=== PATIENT | female | born 2000 | race Two or more races ===

== ENCOUNTER 2023-11-28 13:59 | Observation (INO) | payer SELFPAY ==
[~2023-11-28] VITALS: Ht 157.5 cm; Wt 94.3 kg
[2023-11-28] MEDS: KETOROLAC TROMETHAMINE 30 MG/ML VIAL IV STA (15:25)
[2023-11-28] MEDS: ALBUTEROL/IPRATROPIUM 3 ML NEB NEB SCH (15:26)
[2023-11-28] MEDS: TETANUS/DIPHTHERIA TOX ADULT 0.5 ML SYR IM ONE (15:27)
[2023-11-28] MEDS ORDERED: ONDANSETRON HCL INJ 2MG/ML 2ML 2 MG/ML VIAL IV PRN (16:00)
[2023-11-28] MEDS ORDERED: SODIUM CHLORIDE FLUSH 10 ML SYR INJ PRN (16:00)
[2023-11-28] MEDS ORDERED: ACETAMINOPHEN 325 MG TAB PO PRN (16:00)
[2023-11-28] MEDS ORDERED: ALBUTEROL 90 MCG/ACT INHALER INH PRN (16:00)
[2023-11-28 16:08] VITALS: PULSE 77; RESP 18; TEMP 97.7
[2023-11-28 16:47] VITALS: BP 135/82; PULSE 71; RESP 18; TEMP 98.3; O2SAT 100
[2023-11-28 17:44] VITALS: BP 133/82; PULSE 71; RESP 18; TEMP 98.3; O2SAT 100
[2023-11-28 17:49] VITALS: BP 133/82; PULSE 71; RESP 18; TEMP 98.3; O2SAT 100
[2023-11-28 20:00] VITALS: BP 124/75; PULSE 71; RESP 18; TEMP 98; O2SAT 100
[2023-11-28] MEDS: DIPHENHYDRAMINE HCL 25 MG CAP PO PRN (20:52)
[2023-11-28] MEDS: KETOROLAC TROMETHAMINE 30 MG/ML VIAL IV PRN (20:52)
[2023-11-28 23:15] VITALS: PULSE 70; RESP 18; O2SAT 100
[2023-11-29] VITALS (10 sets, daily range): BP systolic 111–125; BP diastolic 65–76; PULSE 69–93; RESP 16–20; TEMP 98–98.7; O2SAT 98–100
[2023-11-29 05:14] LABS: BASOPHILS # (AUTO) 0.1 (0.0-0.1); BASOPHILS % 0.7 % (0.0-1.0); EOSINOPHILS # (AUTO) 1.1 (0.0-0.4); EOSINOPHILS % 11.1 % (0.0-6.0); HEMATOCRIT 37.3 % (34.2-44.1); HEMOGLOBIN 11.8 g/dL (12.0-16.0); LYMPHOCYTES # (AUTO) 3.3 (1.0-3.2); LYMPHOCYTES % 33.7 % (18.0-39.1); MEAN CORPUSCULAR HEMOGLOBIN 27.3 pg (28-32); MEAN CORPUSCULAR HGB CONC 31.6 g/dL (31-35); MEAN CORPUSCULAR VOLUME 86.3 fL (81-99); MONOCYTES # (AUTO) 0.9 (0.2-0.8); MONOCYTES % 8.6 % (4.4-11.3); NEUTROPHILS # (AUTO) 4.5 (2.1-6.9); NEUTROPHILS % 45.4 % (38.7-80.0); PLATELET COUNT 362 x10e3/uL (140-360); RED BLOOD COUNT 4.32 x10e6/uL (3.6-5.1); RED CELL DISTRIBUTION WIDTH 12.9 % (11.7-14.4); WHITE BLOOD COUNT 9.84 x10e3/uL (4.8-10.8)
[2023-11-29 05:34] LABS: ANION GAP 13.5 mmol/L (8-16); CALCIUM 8.5 mg/dL (8.4-10.2); CREATININE, SERUM 0.81 mg/dL (0.57-1.11); POTASSIUM 3.5 mmol/L (3.5-5.1)
[2023-11-29] MEDS ORDERED: ALBUTEROL/IPRATROPIUM 3 ML NEB NEB PRN ×2 (07:45→08:45)
[2023-11-29] MEDS ORDERED: NAPHAZOLINE OP SCH (09:00)
[2023-11-29] MEDS ORDERED: PHENIRAMINE OP SCH (09:00)
[2023-11-29] MEDS ORDERED: TETRAHYDROZOLINE HCL(OPTH) 30 ML BOTTLE OP PRN (09:30)
[2023-11-29] MEDS: LORATADINE 10 MG TAB PO SCH (09:33)
[2023-11-29] MEDS: CELECOXIB 100 MG CAP PO SCH (10:32)
[2023-11-29] MEDS: ACETAMINOPHEN 325 MG TAB PO PRN (10:33)
[2023-11-30 04:00] VITALS: BP 101/55; PULSE 68; RESP 18; TEMP 97.8; O2SAT 97
[2023-11-30 08:10] VITALS: PULSE 89; RESP 16; O2SAT 97
[2023-11-30 08:14] VITALS: BP 111/53; PULSE 62; RESP 17; TEMP 97.8; O2SAT 98
[2023-11-30 08:51] VITALS: BP 111/53; PULSE 62; RESP 17; TEMP 97.8; O2SAT 98
[2023-11-30] MEDS ORDERED: GADOBENATE DIMEGLUMINE 1 ML IV ONE (09:37)
[2023-11-30 12:42] VITALS: BP 123/74; PULSE 76; RESP 18; TEMP 97.9; O2SAT 98
== END 2023-11-30 14:37 | disposition home or self-care (01) ==
LOC: FSED 14:12 → ERHOLD 15:53 → MED/SURG3 16:40
PROVIDERS: ADMIT Internal Medicine; ATTEND Internal Medicine
DX: L03.114 Cellulitis of left upper limb (principal); S61.452A Open bite of left hand, initial encounter; S60.512A Abrasion of left hand, initial encounter; S61.254A Open bite of right ring finger without damage to nail, initial encounter; S60.511A Abrasion of right hand, initial encounter; W55.01XA Bitten by cat, initial encounter; Y92.009 Unspecified place in unspecified non-institutional (private) residence as the place of occurrence of the external cause; J45.909 Unspecified asthma, uncomplicated; E66.9 Obesity, unspecified; Z68.38 Body mass index [BMI] 38.0-38.9, adult; Z59.6 Low income; Z11.52 Encounter for screening for COVID-19
CPT/HCPCS: 36415; 73130 ×2; 73218; 80048; 80053; 81025; 85025 ×2; 90471; 90714; 94799 ×3; 99252; 99284; A9577; G0378 ×3; J0295 ×3; J1885; J7050

== ENCOUNTER 2024-11-05 17:34 | Emergency (ER) | payer SELFPAY ==
[~2024-11-05] VITALS: Ht 157.5 cm; Wt 94.3 kg
[2024-11-05] MEDS: KETOROLAC TROMETHAMINE 30 MG/ML VIAL IV ONE (18:07)
[2024-11-05] MEDS: SODIUM CHLORIDE 0.9% 1000ML 1,000 ML IV STA (18:07)
[2024-11-05] MEDS: METHYLPREDNISOLONE SOD SUCC 125 MG/2ML VIAL IV ONE (18:07)
[2024-11-05] MEDS: FAMOTIDINE 20 MG/2 ML VIAL IV ONE (18:07)
[2024-11-05] MEDS ORDERED: HYDROXYZINE HCL25 MG PO (18:34)
[2024-11-05] MEDS ORDERED: PREDNISONE20 MG PO (18:34)
[2024-11-05 18:47] VITALS: PULSE 93; RESP 18; TEMP 98.6; O2SAT 100
== END 2024-11-05 19:10 | disposition home or self-care (01) ==
LOC: FSED 17:38
DX: R21 Rash and other nonspecific skin eruption (principal); L30.9 Dermatitis, unspecified; J45.909 Unspecified asthma, uncomplicated; F17.210 Nicotine dependence, cigarettes, uncomplicated
CPT/HCPCS: 80053; 81003; 81025; 85025; 96374; 96375; 99284; J1308; J1885; J2919; J7030

== ENCOUNTER 2024-12-29 12:57 | Emergency (ER) | payer SELFPAY ==
[~2024-12-29] VITALS: Ht 157.5 cm; Wt 94.5 kg
[~2024-12-29 12:57] MED LIST: HYDROXYZINE HCL25 MG PO; PREDNISONE20 MG PO
[2024-12-29] MEDS ORDERED: AMOX TR-K CLV1 EAC1 PO (14:00)
[2024-12-29] MEDS ORDERED: CIPROFLOX-DEXA7.5 ML RIGHT EAR (14:02)
[2024-12-29] MEDS: AMOXICILLIN/CLAVULANATE K 875 MG TAB PO STA (14:02)
[2024-12-29] MEDS: IBUPROFEN 600 MG TAB PO STA (14:02)
[2024-12-29 14:10] VITALS: PULSE 110; RESP 18; TEMP 98.8; O2SAT 96
== END 2024-12-29 14:10 | disposition home or self-care (01) ==
LOC: FSED 13:10
DX: H66.91 Otitis media, unspecified, right ear (principal); H60.91 Unspecified otitis externa, right ear
CPT/HCPCS: 99283